=== PATIENT | male | born 1995 | race African-American/Black ===

== ENCOUNTER 2017-08-12 22:24 | Emergency (ER) | payer SELFPAY ==
[~2017-08-12] VITALS: Ht 177.8 cm; Wt 72.7 kg
[2017-08-12 22:25] VITALS: BP 144/76
[2017-08-12] MEDS ORDERED: HYDROCODONE/ACETAMINOPHEN 5-325 MG TABLET PO ONE (23:15)
== END 2017-08-12 23:51 | disposition home or self-care (01) ==
LOC: EMS 22:24
DX: S82.52XA Displaced fracture of medial malleolus of left tibia, initial encounter for closed fracture (principal); S93.402A Sprain of unspecified ligament of left ankle, initial encounter; X50.1XXA Overexertion from prolonged static or awkward postures, initial encounter; Y93.67 Activity, basketball; Y92.89 Other specified places as the place of occurrence of the external cause; Y99.8 Other external cause status
CPT/HCPCS: 29515; 29540; 99284

== ENCOUNTER 2018-08-20 11:56 | Emergency (ER) | payer SELFPAY ==
[~2018-08-20] VITALS: Ht 177.8 cm; Wt 86.4 kg
[2018-08-20] MEDS ORDERED: DIPHENOXYLATE/ATROP 2.5-0.025 MG TABLET PO ONE (13:45)
[2018-08-20] MEDS ORDERED: ONDANSETRON HCL 4 MG TABLET PO ONE (13:45)
[2018-08-20 14:26] VITALS: BP 127/70
== END 2018-08-20 14:50 | disposition home or self-care (01) ==
LOC: EMS 11:57
DX: K52.9 Noninfective gastroenteritis and colitis, unspecified (principal)
CPT/HCPCS: 99283; Q0162